=== PATIENT | female | born 1950 | race Caucasian/White ===

== ENCOUNTER 2022-05-23 16:55 | Emergency (ER) | payer MEDICARE, SELFPAY ==
--- NOTE | 2022-05-23 | ECG_ITS ---
Test Reason : HTN Blood Pressure : / mmHG Vent. Rate : 081 BPM Atrial Rate : 081 BPM P-R Int : 130 ms QRS Dur : 092 ms QT Int : 388 ms P-R-T Axes : 037 014 047 degrees QTc Int : 450 ms Normal sinus rhythm Left ventricular hypertrophy with repolarization abnormality ( R in aVL , Dong product , Romhilt-Bueno ) Abnormal ECG When compared with ECG of 07-FEB-2017 09:17, Nonspecific T wave abnormality now evident in Inferior leads Referred By: Ángela Rodriguez Electronically Signed By:TAI BORJA MD
[2022-05-23 17:13] VITALS: BP 228/104; PULSE 79; RESP 16; TEMP 36.4; O2SAT 97; BMI 32.9
--- NOTE | 2022-05-23 17:34 | ED_ITS ---
HPI - General Adult General Chief complaint: General Medical Stated complaint: Med refill Time Seen by Provider: 05/23/22 17:27 Source: patient Mode of arrival: ambulatory Limitations: no limitations History of Present Illness HPI narrative: Patient comes to the emergency room complaining of high blood pressure. Patient states that she used to take losartan 50 mg over 2 years ago. However, patient has had multiple providers that keep heaving their office and has not follow up with anyone because she feels well. Patient states she has been off medications for over a year. Patient does check her blood pressure at home, states she usually runs around 150 - 160s systolic. Patient states that she has no sym ptoms, denies chest pain or shortness of breath, no headaches or blurred vision. Patient usually checks her blood pressure and this time she took it after having family problems at her sister's house. Related Data Previous Rx's Medication Instructions Recorded losartan 50 mg tablet 50 mg PO DAILY #30 tabs 05/23/22 Allergies Allergy/AdvReac Type Severity Reaction Status Date / Time No Known Allergies Allergy Verified 05/23/22 17:24 Review of Systems Review of Systems: Constitutional : No Weight loss, No Fever, No Chills, No Night Sweats, No Fatigue, No Malaise ENT/Mouth : No Hearing loss, No Ear Pain, No Nasal Congestion, No Sinus Pain, No Hoarseness, No sore throat, No Rhinorrhea, No Swallowing Difficulty Eyes: No Eye Pain, No Swelling, No Redness, No Foreign Body, No Discharge, No Vision Changes Cardiovascular : No Chest Pain, No SOB, No Dyspnea on Exertion, No Orthopnea, No Edema, No Palpitations Respiratory : No Cough, No Sputum, No Wheezing, No Smoke Exposure, No Dyspnea Gastrointestinal : No Nausea, No Vomiting, No Diarrhea, No Constipation, No abdominal Pain, No Hematochezia, No Melena Genitourinary : no irregular bleeding, No Dysuria, No Urinary Frequency, No Hematuria, No Urinary Incontinence, No Urgency, No Flank Pain, No Urinary Flow Changes, No Hesitancy Musculoskeletal : No joint pain, No Myalgias, No Joint Swelling Skin : No Skin Lesions, No rash Neuro : No Weakness, No Numbness, No Paresthesias, No Loss of Consciousness, No Dizziness, No Headache Psych : No Anxiety/Panic, No Depression, No SI/HI/AH/VH, No Social Issues, Heme/Lymph: No Bruising, No Bleeding,No Lymphadenopathy Endocrine : No Polyuria, No Polydipsia, No Temperature Intolerance [facility] Past Medical History Medical History (Updated 05/23/22 @ 19:53 by Ángela Rodriguez MD) Hyperlipidemia Hypertension Social History Social History Advance Directives: No Advance Directives Information Provided: Yes Physical Exam ED Vital Signs: Vital Signs - 24 hr 05/23/22 17:13 05/23/22 17:39 05/23/22 18:19 Temperature 97.5 F 98.2 F Pulse Rate 79 98 Respiratory Rate 16 18 Blood Pressure 228/104 H 237/114 H 210/94 H Pulse Oximetry 97 98 Oxygen Delivery Method Room Air Room Air 05/23/22 19:23 Temperature 98.1 F Pulse Rate 80 Respiratory Rate 19 Blood Pressure 174/89 H Pulse Oximetry 97 Oxygen Delivery Method Room Air BMI result Body Mass Index 32.9 Const Other: Appearance: Alert. Oriented X3. No acute distress. Well-appearing Eyes: Pupils equal, round and reactive to light. ENT: Pharynx normal. Neck: Normal inspection. Neck supple. No lymph nodes noted. No crepitus CVS: Normal heart rate and rhythm. Pulses normal. Normal S1 and S2 Respiratory: No respiratory distress. Breath sounds normal. No Wheezing. No rales Abdomen: Soft and nontender. No rigidity. No distention. Skin: Skin warm and dry. Normal skin color. Normal skin turgor. Extremities: No lower extremity edema. No Lacerations. No Rash Neuro: Oriented X 3. No motor deficit. No sensory deficit. Moving all extremities. No slurred speech. CN 2 through 12 grossly intact Psych: calm, cooperative, normal affect Course Course Course Narrative: -patient's labs and EKG pending -patient will receive p.o. labetalol 100 mg -patient's initial blood pressure 228/104, and recheck 237/114 -patient is asymptomatic -After 1 dose of p.o. labetalol, blood pressure did not improve much, now 210/94, heart rate 98, patient will get another dose of p.o. labetalol 100 mg -patient potassium 3.1, being repleted with p.o. potassium Patient's blood pressure 174/89 Medications Administered Discontinued Medications Generic Name Dose Route Start Last Admin Trade Name Freq PRN Reason Stop Dose Admin Labetalol HCl 100 mg 05/23/22 17:37 05/23/22 17:43 Labetalol Hcl 100 Mg Tablet PO 05/23/22 17:38 100 mg ONCE ONE Administration Protocol Labetalol HCl 100 mg 05/23/22 18:34 05/23/22 18:43 Labetalol Hcl 100 Mg Tablet PO 05/23/22 18:35 100 mg ONCE ONE Administration Protocol Potassium Chloride 40 meq 05/23/22 18:34 05/23/22 18:43 Potassium Chloride Packet 20 Meq Packet PO 05/23/22 18:35 40 meq ONCE ONE Administration Medical Decision Making Medical Decision Making MDM Narrative: Potassium repleted with p.o. potassium 40 mEq. Troponin 14 EKG 1 shows sinus rhythm, heart rate 81, nonspecific ST segment depression approximately 1 mm in leads 1 2 and aVL EKG 2 shows normal sinus rhythm, heart rate 79, improvement in ST segment changes in leads 1 3 and aVL, AVR looks less pronounced. QTC 447 EKG changes likely secondary to hypertension. EKG 1 was done with a blood pressure of 228/104, 2nd EKG was done with a blood pressure of 174/88 which is current. Patient remains asymptomatic Patient will be restarted on losartan. Differential Diagnosis Differential Diagnoses: The differential diagnosis associated with the presentation includes (Hypertension N/C, hypertension emergency, chronic hypertension) Lab Data [facility] Lab Attestation statement: I reviewed the patient's lab results. 05/23/22 17:36 05/23/22 17:36 Labs: Lab Results 05/23/22 05/23/22 05/23/22 Range/Units 17:36 17:36 17:36 WBC 7.0 (4.8-10.8) X10*3/uL RBC 5.45 (4.20-5.50) X10*6/uL Hgb 14.8 (12.0-16.0) g/dl Hct 44.9 (37.0-47.0) % MCV 82.4 (80.0-98.0) fL MCH 27.2 (27.0-33.0) pg MCHC 33.0 (31.0-35.0) g/dl RDW 14.0 (11.0-16.0) % Plt Count 220 (160-400) X10*3/uL MPV 12.2 (9.4-12.3) fL Immature Gran % (Auto) 0.1 (0.0-0.4) % Neut % (Auto) 54.2 (45-73) % Lymph % (Auto) 30.4 (20-40) % Darke % (Auto) 7.9 (2-11) % Eos % (Auto) 6.4 H (0-4) % Baso % (Auto) 1.0 (0-2) % Lymph # (Auto) 2.1 (1.2-4.9) X10*3/uL Darke # (Auto) 0.6 (0.1-1.2) X10*3/uL Eos # (Auto) 0.5 H (0.0-0.4) X10*3/uL Baso # (Auto) 0.1 (0.0-0.2) X10*3/uL Abs Immat Gran (auto) 0.01 (0.00-0.03) X10*3/uL Absolute Neuts (auto) 3.8 (2.0-8.3) x10*3/uL Absolute Nucleated RBC 0.000 (0.0-0.012) X10*3/uL Nucleated RBC % (auto) 0.0 (0.0-0.2) /100WBC Sodium 143 (135-145) mmol/L Potassium 3.1 L (3.3-5.1) mmol/L Chloride 101 (96-108) mmol/L Carbon Dioxide 32 H (22-29) mmol/L Anion Gap 13 (12-20) BUN 19 H (9-16) mg/dL Creatinine 0.80 (0.5-1.4) mg/dL Estim Creat Clear Calc 63.8 Estimated GFR > 60 Random Glucose 89 (60-115) mg/dL Calcium 9.7 (8.4-10.2) mg/dL Total Bilirubin 0.6 (0.0-1.0) mg/dL AST 23 (5-31) U/L ALT 22 (0-31) U/L Alkaline Phosphatase 66 (39-117) U/L Troponin I High Sens 14.7 (<3.5-17.0) ng/L Total Protein 7.1 (6.5-8.0) g/dL Albumin 4.2 (3.5-5.0) g/dL Discharge Plan Discharge Clinical Impression: Hypertension Patient Disposition: Home, Self-Care Instructions: Hypertension (ED) Additional Instructions: Please follow-up with your primary care physician tomorrow. If you have any worsening or new symptoms, please return to the emergency room or call 911 Prescriptions: New losartan 50 mg tablet 50 mg PO DAILY Qty: 30 0RF Referrals: Tucker Rossi MD [Primary Care Provider] - 05/26/22
[2022-05-23 17:39] VITALS: BP 237/114; PULSE 98; RESP 18; TEMP 36.8; O2SAT 98
[2022-05-23 17:40] LABS: MANUAL DIFF FLAG NO
--- NOTE | 2022-05-23 17:40 | PC.NURSE ---
72 y/o F pw HTN, found to have BP 237/114. pt endorsing not having taken her BP medication in 2 years. she denies any other sx, no dizziness/n/v etc. pt is aox3, calm and cooperative, OVSS. 18g IV in place, labs drawn and sent. EKG done, pt in gown and on monitor
[2022-05-23] MEDS: Labetalol HCL 100 MG TABLET PO ×2 (17:43→18:43)
[2022-05-23 17:51] LABS: Basophils Absolute Auto 0.1 X10*3/uL (0.0-0.2); Eosinophils Absolute Auto 0.5 X10*3/uL (0.0-0.4); Eosinophils Percent Auto 6.4 % (0-4); Hematocrit 44.9 % (37.0-47.0); Hemoglobin 14.8 g/dl (12.0-16.0); Imm Gran Abs Auto 0.01 X10*3/uL (0.00-0.03); Imm Gran Pct Auto 0.1 % (0.0-0.4); Lymphocytes Absolute Auto 2.1 X10*3/uL (1.2-4.9); Lymphocytes Percent Auto 30.4 % (20-40); Mean Corpuscular Hemoglobin 27.2 pg (27.0-33.0); Mean Corpuscular Volume 82.4 fL (80.0-98.0); Mean Platelet Volume 12.2 fL (9.4-12.3); Monocytes Absolute Auto 0.6 X10*3/uL (0.1-1.2); Monocytes Percent Auto 7.9 % (2-11); Neutrophils Absolute Auto 3.8 x10*3/uL (2.0-8.3); Neutrophils Percent Auto 54.2 % (45-73); Platelet Count 220 X10*3/uL (160-400); Red Blood Count 5.45 X10*6/uL (4.20-5.50)
[2022-05-23 18:11] LABS: Alanine Aminotransferase 22 U/L (0-31); Albumin Level 4.2 g/dL (3.5-5.0); Alkaline Phosphatase 66 U/L (39-117); Anion Gap 13 (12-20); Aspartate Amino Transferase 23 U/L (5-31); Bilirubin Total 0.6 mg/dL (0.0-1.0); Blood Urea Nitrogen 19 mg/dL (9-16); Calcium 9.7 mg/dL (8.4-10.2); Carbon Dioxide 32 mmol/L (22-29); Chloride 101 mmol/L (96-108); Creatinine Clr Calc Pharmacy 63.8; Estimated Glomerular Filt Rate > 60; Glucose Random 89 mg/dL (60-115); Potassium 3.1 mmol/L (3.3-5.1); Sodium 143 mmol/L (135-145); Total Protein 7.1 g/dL (6.5-8.0)
[2022-05-23 18:16] LABS: Troponin-I High Sensitivity 14.7 ng/L (<3.5-17.0)
[2022-05-23 18:19] VITALS: BP 210/94
[2022-05-23] MEDS: Potassium Chloride Packet 20 MEQ PACKET 40 MEQ PO (18:43)
[2022-05-23 19:23] VITALS: BP 174/89; PULSE 80; RESP 19; TEMP 36.7; O2SAT 97
--- NOTE | 2022-05-23 19:24 | PC.NURSE ---
Assumed care for pt. Pt aox4 resting at the bedside. Breaths are even unlabored. O2 sat 97% RA. NSR on monitor with HR 80. Skin warm pink and dry. BP improvement noted, 174/89. Pt aware of plan of care. Will continue to monitor.
--- NOTE | 2022-05-23 19:40 | ECG_ITS ---
Test Reason : CHEST PAIN Blood Pressure : / mmHG Vent. Rate : 079 BPM Atrial Rate : 079 BPM P-R Int : 134 ms QRS Dur : 086 ms QT Int : 390 ms P-R-T Axes : 043 018 056 degrees QTc Int : 447 ms Normal sinus rhythm Moderate voltage criteria for LVH, may be normal variant ( R in aVL , Dong product ) Nonspecific ST and T wave abnormality Abnormal ECG When compared with ECG of 23-MAY-2022 17:38, Nonspecific T wave abnormality no longer evident in Inferior leads Referred By: Ángela Rodriguez Electronically Signed By:TAI BORJA MD
--- NOTE | 2022-05-23 20:06 | PC.NURSE ---
IV line removed with no complication. Pt tolerated well. Discharge instructions reviewed with pt. Pt verbalizes understanding.
== END 2022-05-23 20:06 | disposition home or self-care (01) ==
PROVIDERS: Emergency Provider Emergency Medicine; PCP Family Medicine
DX: I10 Essential (primary) hypertension (principal); Z76.0 Encounter for issue of repeat prescription
CPT/HCPCS: 36415; 80053; 84484; 85025; 93005; 99283; 99284